=== PATIENT | male | born 1995 | race Caucasian/White ===

== ENCOUNTER 2019-06-19 15:10 | Inpatient (IN) | payer SELFPAY ==
[2019-06-19] VITALS: BP 112/47
[~2019-06-19] VITALS: Ht 172.7 cm; Wt 91.8 kg
[2019-06-19] MEDS ORDERED: SODIUM CHLORIDE 0.9% 1,000 ML IV ONE ×2 (16:50→18:28)
[2019-06-19 17:42] LABS: HEMATOCRIT. 47.2 % (42.0-52.0); HEMOGLOBIN. 16.1 g/dL (14.0-18.0); MEAN CORPUSCULAR HEMOGLOBIN 30.2 pg (28.0-32.0); MEAN CORPUSCULAR VOLUME 88.3 fL (80.0-94.0); MEAN PLATELET VOLUME 11.2 fl (7.4-10.4); PLATELET 127 x1000/uL (130-400); RED BLOOD CELL COUNT 5.35 mill/uL (4.7-6.1); RED CELL DISTRIBUTION WIDTH 13.5 % (11.6-14.6)
[2019-06-19 17:48] LABS: CHLORIDE 103 mEq/L (98-107)
[2019-06-19 17:53] LABS: ETHANOL BLOOD < 10 mg/dL
[2019-06-19 18:03] LABS: *AMPHETAMINES SCREEN URINE NEGATIVE (NEGATIVE); *BARBITURATES SCREEN URINE NEGATIVE (NEGATIVE); *BENZODIAZEPINES SCREEN URINE NEGATIVE (NEGATIVE); *COCAINE SCREEN URINE NEGATIVE (NEGATIVE); METHADONE URINE SCREEN NEGATIVE (NEGATIVE)
[2019-06-19 18:04] LABS: CANNABINOID URINE SCREEN NEGATIVE (NEGATIVE); OPIATES URINE SCREEN NEGATIVE (NEGATIVE); PHENCYCLIDINE URINE SCREEN NEGATIVE (NEGATIVE)
[2019-06-19 18:06] LABS: PLATELET ESTIMATE SLIGHTLY DECREASED
[2019-06-19 18:08] LABS: CREATINE KINASE MB FRACTION 2.2 ng/mL (0.5-3.6)
[2019-06-19] MEDS ORDERED: ASPIRIN 81MG TABLET PO ONE (18:45)
[2019-06-19] MEDS ORDERED: PIPERACILLIN/TAZ 3.375G PREMIX 50 ML IV ONE (18:45)
[2019-06-19] MEDS ORDERED: SODIUM CHLORIDE 0.9% 1000ML BAG (SEPSIS BOLUS) IV ONE (18:45)
[2019-06-19 20:45] VITALS: BP 121/65
[2019-06-19] MEDS ORDERED: MAGNESIUM/ALUMINUM HYDROXIDE/SIMETHICONE 30ML UDC PO PRN (21:30)
[2019-06-19] MEDS ORDERED: NA PHOS,M-B/NA PHOS,DI-BA ENEMA 118ML PR PRN (21:30)
[2019-06-19] MEDS ORDERED: DIPHENHYDRAMINE 50MG/ML VIAL IV PRN (21:30)
[2019-06-19] MEDS ORDERED: GUAIFENESIN 200MG/10ML SUGAR FREE UDC PO PRN (21:30)
[2019-06-19] MEDS ORDERED: CLONIDINE 0.1MG TABLET PO PRN (21:30)
[2019-06-19] MEDS ORDERED: DOCUSATE SODIUM 100MG CAPSULE PO PRN (21:30)
[2019-06-19] MEDS ORDERED: HYDROCODONE/ACETAMINOPHEN 5/325MG TABLET PO PRN (21:30)
[2019-06-19] MEDS ORDERED: MORPHINE SULFATE 2 MG/ML CPJ (NOT FOR IM USE) IV PRN (21:30)
[2019-06-19] MEDS ORDERED: LORAZEPAM 2MG/ML CPJ IV PRN (21:30)
[2019-06-19] MEDS ORDERED: ACETAMINOPHEN 325MG TABLET PO PRN (21:30)
[2019-06-19] MEDS ORDERED: IPRATROPIUM/ALBUTEROL 0.5-3(2.5)MG/3ML NEB NEB PRN (21:30)
[2019-06-19] MEDS ORDERED: ONDANSETRON HCL 4MG/2ML INJ IV PRN (21:30)
[2019-06-19] MEDS: ENOXAPARIN 30MG/0.3ML SYR SUBCUT SCH (22:12)
[2019-06-19] MEDS: LEVOFLOXACIN 500MG PREMIX 100 ML IV SCH (23:04)
[2019-06-20] VITALS: BP 112/57
[2019-06-20 00:27] LABS: CHLORIDE 105 mEq/L (98-107)
[2019-06-20 04:00] VITALS: BP 100/60
[2019-06-20 07:38] LABS: BASOPHILS % 0.2 % (0.0-2.0); EOSINOPHILS % 0.2 % (0.0-5.0); HEMATOCRIT. 41.4 % (42.0-52.0); HEMOGLOBIN. 14.5 g/dL (14.0-18.0); LYMPHOCYTES % 15.7 % (20.0-50.0); MEAN CORPUSCULAR HEMOGLOBIN 30.7 pg (28.0-32.0); MEAN CORPUSCULAR VOLUME 87.9 fL (80.0-94.0); MEAN PLATELET VOLUME 10.9 fl (7.4-10.4); MONOCYTES % 4.9 % (2.0-8.0); PLATELET 106 x1000/uL (130-400); RED BLOOD CELL COUNT 4.71 mill/uL (4.7-6.1); RED CELL DISTRIBUTION WIDTH 13.6 % (11.6-14.6)
[2019-06-20 07:51] LABS: CHLORIDE 105 mEq/L (98-107)
[2019-06-20 08:00] VITALS: BP 120/69
[2019-06-20 08:00] LABS: LDL CHOLESTEROL 60 mg/dL (5-100)
[2019-06-20 08:02] LABS: HDL CHOLESTEROL 26 mg/dL (40-59)
[2019-06-20] MEDS: ASPIRIN 81MG EC TABLET PO SCH (09:00)
[2019-06-20] MEDS: ENOXAPARIN 30MG/0.3ML SYR SUBCUT SCH ×2 (09:00→22:30)
[2019-06-20 16:00] VITALS: BP 116/78
[2019-06-20 20:00] VITALS: BP 130/77
[2019-06-20] MEDS: LEVOFLOXACIN 500MG PREMIX 100 ML IV SCH (22:31)
[2019-06-21] VITALS: BP 114/73
[2019-06-21 04:00] VITALS: BP 123/77
[2019-06-21 07:35] LABS: BASOPHILS % 0.1 % (0.0-2.0); EOSINOPHILS % 1.6 % (0.0-5.0); HEMOGLOBIN. 15.4 g/dL (14.0-18.0); LYMPHOCYTES % 26.5 % (20.0-50.0); MEAN CORPUSCULAR HEMOGLOBIN 30.8 pg (28.0-32.0); MEAN CORPUSCULAR VOLUME 87.9 fL (80.0-94.0); MEAN PLATELET VOLUME 11.2 fl (7.4-10.4); MONOCYTES % 8.6 % (2.0-8.0); NEUTROPHILS % 63.2 % (40.0-76.0); PLATELET 116 x1000/uL (130-400); RED CELL DISTRIBUTION WIDTH 13.5 % (11.6-14.6)
[2019-06-21 07:41] LABS: CHLORIDE 106 mEq/L (98-107)
[2019-06-21 08:00] VITALS: BP 103/45
[2019-06-21] MEDS: ASPIRIN 81MG EC TABLET PO SCH (09:17)
[2019-06-21] MEDS: ENOXAPARIN 30MG/0.3ML SYR SUBCUT SCH (09:17)
[2019-06-21 12:00] VITALS: BP 103/73
[2019-06-21 12:51] VITALS: BP 103/73
[2019-06-21] MEDS ORDERED: LEVOFLOXACIN 500MG TABLET PO SCH (21:00)
== END 2019-06-21 14:05 | disposition home or self-care (01) | DRG 203 ==
LOC: ER 15:10 → 8WST 18:42 → EDBEDREQ 18:49 → ENRESERV 19:57
PROVIDERS: ADMIT Internal Medicine; ATTEND Internal Medicine
DX: R07.89 Other chest pain (principal); R65.10 Systemic inflammatory response syndrome (SIRS) of non-infectious origin without acute organ dysfunction; D72.825 Bandemia; Z90.49 Acquired absence of other specified parts of digestive tract
CPT/HCPCS: 36415; 71045; 76705; 80048; 80061; 80305; 80320; 82550; 82553; 83605; 83880; 84443; 84484; 87804; 93005; 99285; J1650; J1956; J2543; J7030; J7040; G0480

== ENCOUNTER 2019-08-01 22:05 | Emergency (ER) | payer SELFPAY ==
[~2019-08-01] VITALS: Ht 175.3 cm; Wt 100.0 kg
[2019-08-01] MEDS ORDERED: SODIUM CHLORIDE 0.9% 1000ML BAG (SEPSIS BOLUS) IV ONE (23:00)
[2019-08-01 23:37] LABS: CHLORIDE 105 mEq/L (98-107)
[2019-08-01 23:38] LABS: BASOPHILS % 0.4 % (0.0-2.0); EOSINOPHILS % 1.5 % (0.0-5.0); HEMATOCRIT. 43.9 % (42.0-52.0); HEMOGLOBIN. 15.1 g/dL (14.0-18.0); LYMPHOCYTES % 16.8 % (20.0-50.0); MEAN CORPUSCULAR VOLUME 87.4 fL (80.0-94.0); MEAN PLATELET VOLUME 11.3 fl (7.4-10.4); NEUTROPHILS % 75.3 % (40.0-76.0); PLATELET 86 x1000/uL (130-400); RED BLOOD CELL COUNT 5.02 mill/uL (4.7-6.1); RED CELL DISTRIBUTION WIDTH 13.4 % (11.6-14.6)
[2019-08-01 23:44] LABS: ETHANOL BLOOD < 10 mg/dL
[2019-08-02 00:08] LABS: CLARITY URINE CLEAR (CLEAR); COLOR URINE DARK YELLOW (YELLOW); KETONES URINE TRACE (NEGATIVE); LEUKOCYTE ESTERASE URINE NEGATIVE (NEGATIVE); NITRITE URINE NEGATIVE (NEGATIVE); OCCULT BLOOD URINE NEGATIVE (NEGATIVE); PH URINE 6.5 (4.5-8.0); PROTEIN URINE 1+ (NEGATIVE); SPECIFIC GRAVITY URINE 1.026 (1.005-1.030)
[2019-08-02] MEDS ORDERED: ACETAMINOPHEN 500MG TABLET PO ONE (00:15)
[2019-08-02 00:25] LABS: *AMPHETAMINES SCREEN URINE NEGATIVE (NEGATIVE); *BARBITURATES SCREEN URINE NEGATIVE (NEGATIVE); *BENZODIAZEPINES SCREEN URINE NEGATIVE (NEGATIVE); *COCAINE SCREEN URINE NEGATIVE (NEGATIVE); METHADONE URINE SCREEN NEGATIVE (NEGATIVE); OPIATES URINE SCREEN NEGATIVE (NEGATIVE)
[2019-08-02 00:26] LABS: CANNABINOID URINE SCREEN NEGATIVE (NEGATIVE); PHENCYCLIDINE URINE SCREEN NEGATIVE (NEGATIVE)
[2019-08-02] MEDS ORDERED: KETOROLAC 30MG/ML VIAL IV ONE (01:30)
[2019-08-02 01:48] VITALS: BP 109/61
== END 2019-08-02 02:02 | disposition home or self-care (01) ==
LOC: ER 22:05 → CANBEDREQ 08-02 06:18
DX: B34.9 Viral infection, unspecified (principal); R51 Headache; R06.82 Tachypnea, not elsewhere classified; Z90.49 Acquired absence of other specified parts of digestive tract
CPT/HCPCS: 36415; 71045; 80053; 80305; 80320; 81003; 83605; 83690; 84145; 85025; 85610; 87040; 87070; 87086; 87430; 87804; 93005; 96374; 99284; J1885; J7030; G0480